=== PATIENT | female | born 1940 | race Caucasian/White ===

== ENCOUNTER 2017-03-04 14:22 | Emergency (ER) | payer MEDICARE, BC, OTHER ==
[2017-03-04 14:51] VITALS: BP 142/62
--- NOTE | 2017-03-04 15:07 | UC ---
Dental HPI - HPI Summary HPI Summary: pt c/o left side dental discomfort after having extensive dental work 2 weeks ago. Reports that post dental work has c/o generalized malaise, flu like symptoms, left side neck ache and swelling. - History of Current Complaint Stated Complaint: FLU LIKE SYMPTOMS Time Seen by Provider: 03/04/17 14:28 Hx Obtained From: Patient Hx Last Menstrual Period: n/a ?: No Onset/Duration: Gradual Onset, Lasting Weeks - 2 Severity: Mild Related History: Previous Dental Care on Same Tooth, Swelling - Allergies/Home Medications Allergies/Adverse Reactions: Allergies Allergy/AdvReac Type Severity Reaction Status Date / Time Codeine Allergy See Comment Verified 03/04/17 14:33 Lactose Intolerance (GI) Allergy GI Upset Verified 03/04/17 14:33 Oxycodone Allergy See Comment Verified 03/04/17 14:33 Sulfamethoxazole Allergy GI Upset Verified 03/04/17 14:33 w/Trimethoprim [From Bactrim] environmental Allergy Eyes Uncoded 03/04/17 14:33 Itchy/Swollen/Red/Watery Home Medications: Home Medications Apixaban* [Eliquis*] 5 mg PO BID 03/04/17 [History Confirmed 03/04/17] Lactase [Lactaid Fast Act] 1 unit PO PRN 03/04/17 [History] Loperamide CAP* [Imodium CAP*] 2 mg PO Q4H PRN 03/04/17 [History Confirmed 03/04] PMH/Surg Hx/FS Hx/Imm Hx Previously Healthy: Yes - Surgical History Surgical History: Yes Surgery Procedure, Year, and Place: Pacemaker 12/2012, Exchange of pacer leads 2013, Partial Hysterectomy 1976. APPENDECTOMY. CHOLYCYSTECTOMY - Family History Known Family History: Positive: Hypertension - BROTHER, Diabetes - BROTHER Negative: Cardiac Disease - Social History Occupation: Retired Lives: With Family Alcohol Use: Rare Substance Use Type: None Smoking Status (MU): Never Smoked Tobacco - Immunization History Most Recent Influenza Vaccination: JAN 2017 Review of Systems Constitutional: Fever, Chills, Fatigue Skin: Negative Eyes: Negative ENT: Dental Pain, Sore Throat Respiratory: Negative Cardiovascular: Negative Gastrointestinal: Negative Genitourinary: Negative Motor: Negative Neurovascular: Negative Musculoskeletal: Negative Neurological: Negative Psychological: Negative Is Patient Immunocompromised?: No All Other Systems Reviewed And Are Negative: Yes Physical Exam Triage Information Reviewed: Yes Appearance: Ill-Appearing - left side of face appears mildly swollen Vital Signs: Initial Vital Signs Temp 99.7 F 03/04/17 14:40 Pulse 72 03/04/17 14:40 Resp 18 03/04/17 14:40 BP 142/62 03/04/17 14:40 Pulse Ox 96 03/04/17 14:40 Vital Signs Reviewed: Yes Eye Exam: Normal ENT Exam: Normal Dental Exam: Other Dental: Positive: Other: - extensive dental work, Neck exam: Other Neck: Positive: Tenderness @ - left side of neck Respiratory Exam: Normal Cardiovascular Exam: Normal Musculoskeletal Exam: Normal Neurological Exam: Normal Psychological Exam: Normal Skin Exam: Normal Dental Complaint Course/Dx - Differential Dx/Diagnosis Differential Diagnosis/Dx: Dental Abscess, Other - viral syndrome Provider Diagnoses: dental infection Discharge - Discharge Plan Condition: Stable Disposition: HOME Prescriptions: Amoxicillin PO (*) [Amoxicillin 500 MG CAP*] 500 mg PO Q12H #14 cap Patient Education Materials: Dental Abscess (ED), Acute Dental Trauma (ED) Referrals: Christin King MD [Primary Care Provider] - If Needed Additional Instructions: Please follow up with your dental care provider as needed.
== END 2017-03-04 15:27 | disposition home or self-care (01) ==
LOC: UCCORT 14:22
DX: K04.7 Periapical abscess without sinus (principal); Z79.01 Long term (current) use of anticoagulants; Z88.5 Allergy status to narcotic agent; Z88.2 Allergy status to sulfonamides; Z95.0 Presence of cardiac pacemaker
CPT/HCPCS: 87502; 99212; G0463

== ENCOUNTER 2017-08-30 14:17 | Emergency (ER) | payer MEDICARE, BC, OTHER ==
[2017-08-30 15:04] VITALS: BP 123/79
== END 2017-08-30 15:21 | disposition left against medical advice (07) ==
LOC: UCCORT 14:17
DX: R29.91 Unspecified symptoms and signs involving the musculoskeletal system (principal); Z53.21 Procedure and treatment not carried out due to patient leaving prior to being seen by health care provider